=== PATIENT | female | born 1990 | race Two or more races ===

== ENCOUNTER 2024-12-03 19:11 | Emergency (ER) | payer OTHER, SELFPAY ==
--- NOTE | 2024-12-03 19:18 | XR_ITS ---
Examination: Duplex scan of the lower extremity, unilateral left Date and time of exam: December 03, 2024 1923 hours INDICATIONS: Left leg swelling pain and discoloration today Technique: Duplex scan of the extremity veins using B-mode/grayscale imaging and Doppler spectral analysis and color flow Attention is directed to internal echogenicity, compression and augmentation involving these veins, color flow assessment, spectral analysis Findings: Major deep venous structures in the extremity demonstrate normal course and caliber. There is no evidence of deep vein thrombosis. Normal color flow and spectral analysis Impression: Negative for DVT..
[2024-12-03 19:19] VITALS: BP 154/80; PULSE 87; RESP 20; TEMP 36.6; O2SAT 96
--- NOTE | 2024-12-03 19:20 | EDNOTE_ITS ---
ED Extremity Problem RME/HPI General Chief complaint: Extremity Problem,Nontraumatic Stated complaint: LEFT LEG SWELLING ,DISCOLORED, AND PAIN Time Seen by Provider: 12/03/24 19:17 Arrival date/time: 12/03/24 19:11 34F with no significant PMH presents to ED with L leg swelling and pain w/o fall/trauma today. Patient has had sciatica before and states this feels different. Limitations: no limitations Related Data Allergies Allergy/AdvReac Type Severity Reaction Status Date / Time No Known Allergies Allergy Verified 12/03/24 19:12 Review of Systems Review of Systems Systems Reviewed: All systems reviewed, normal except as documented Constitutional Constitutional: Reports system reviewed and no additional complaints, except as documented, Denies fever(s) and Denies headache(s) ENT Ears, Nose, Mouth, and Throat: Denies disequilibrium and Denies headache(s) Cardiovascular Cardiovascular: Reports system reviewed and no additional complaints, except as documented, Denies chest pain and Denies dyspnea Respiratory Respiratory: Reports system reviewed and no additional complaints, except as documented, Denies cough and Denies dyspnea Gastrointestinal Gastrointestinal: Reports system reviewed and no additional complaints, except as documented, Denies abdominal pain, Denies nausea and Denies vomiting Musculoskeletal Musculoskeletal: Reports as per HPI and Reports arthralgias Neurologic Neurologic: Reports system reviewed and no additional complaints, except as documented, Denies confusion, Denies disequilibrium and Denies headache(s) Psychiatric Psychiatric: Denies confusion Past Medical History Past Medical History NEUROLOGIC: Positive Migraine; Negative Neurological Disorders, Seizures or Head Trauma CARDIAC: Negative Cardiac Disorders, Heart Murmur, Hypercholesterolemia, Congestive Heart Failure, Edema, Hypertension or Varicose Veins RESPIRATORY: Positive Pneumonia (2016); Negative Chronic Obstructive Pulmonary Disease (COPD), Tuberculosis or Sleep Apnea GASTROINTESTINAL: Positive Gastrointestinal Disorders and Obesity; Negative Hepatitis GENITOURINARY: Negative Genitourinary Disorders, Renal Disease or Kidney Stones REPRODUCTIVE: Positive Previous Pregnancies (X2); Negative Breast Cancer MUSCULOSKELETAL: Positive Musculoskeletal Disorders (CARPAL TUNNEL BILATERAL, HIP PAIN BILATERAL) and Fractures (RIGHT PINKY, LEFT ANKLE) ENT: Positive Ear Infection (BILAT); Negative Cataracts, Glaucoma or Head Trauma ENDOCRINE: Negative Endocrine Disorders, Diabetes Mellitus Type 1 or Diabetes Mellitus Type 2 HEMATOLOGIC: Positive Blood Disorders and Anemia (during ); Negative Leukemia PSYCHO/SOCIAL: Positive Anxiety (TAKES MEDS PRN) OTHER HISTORY: Positive Hospitalization (X1) and Chicken Pox; Negative Autoimmune Disease, Falls, Blood Transfusions, Blood Transfusion Reaction, Anesthesia Reactions, Organ Transplant, Chemotherapy, Radiation Therapy, MRSA, Measles, Mumps, Cancer, Breast Cancer, Cervical Cancer or Ovarian Cancer Family History FAMILY HISTORY: Positive Family Psychiatric Problems (SISTER - ANXIETY), Family Respiratory Disorders (mother, brother asthma), Family Gastrointestinal Problems (mother ulcer. MOTHER, FATHER, BROTHER - GB. MOTHER, SISTER, BROTHER - APPY) and Family Surgery (FATHER, MOTHER, BROTHER, SISTER); Negative Family Cardiac Disorders, Family Cancer or Family Anesthesia Reaction Surgical History SURGICAL: Positive Tubal Ligation (06/2019) and Section (X1 2011); Negative Cardiac Surgery, Pacemaker, Endocrine Surgery, Thyroidectomy, Ear Surgery, Eye Surgery, Nose Surgery, Oral Surgery, Tonsillectomy, Abdominal Surgery, Joint Replacement, Neurologic Surgery or Organ Transplant Social History SMOKING STATUS: Never smoker ED Exam General Limitations: Present no limitations General appearance: Present alert and in no apparent distress Head Head exam: Present atraumatic Eye Eye exam: Present normal appearance, PERRL and EOMI ENT ENT exam: Present normal exam, normal oropharynx and mucous membranes moist Neck Neck exam: Present normal inspection, full ROM and trachea midline Chest Chest inspection: Present normal inspection and symmetric chest wall rise Respiratory Respiratory exam: Present normal lung sounds bilaterally Cardiovascular Cardiovascular exam: Present regular rate, normal rhythm and normal heart sounds Abdominal Exam Abdominal exam: Present soft and normal bowel sounds Extremities Exam Extremities exam: Present normal inspection and full ROM Back Exam Back exam: Present normal inspection and full ROM Neurological Exam Neurological exam: Present alert, oriented X3 and CN II-XII intact Psychiatric Psychiatric exam: Present normal affect and normal mood Skin Skin exam: Present warm, dry, intact and normal color Course Quality Measures none Orders Category Date Time Status US venous doppler LE LT Stat Exams 12/03/24 19:18 Completed Ketorolac Inj [Toradol Inj] Med 12/03/24 21:17 Discontinued 60 mg IM X1 ONE Vital Signs Vital signs: Vital Signs Temperature 97.8 F 12/03/24 19:19 Pulse Rate 87 12/03/24 19:19 Respiratory Rate 20 12/03/24 19:19 Blood Pressure 154/80 H 12/03/24 19:19 Pulse Oximetry (%) 96 12/03/24 19:19 Oxygen Delivery Method Room Air 12/03/24 19:19 O2 at 96% on RA and WNLs Extremity Problem MDM Narrative MDM Narrative:: 34F with no significant PMH presents to ED with L leg swelling and pain w/o fall/trauma today. Patient has had sciatica before and states this feels different. Physical exam reveals minimal swelling in LLE. Skin warm. Pulses present. Patient is afebrile, calm, and alert. Leg pain. Meds and newspaper delivery counselor given. Patient data External records reviewed:: [facility] previous records Clinical information provided by:: patient Social determinants that could affect healthcare access:: none Patient has the following chronic illnesses:: none How is presenting disease/condition affected by chronic disease/condition?: no chronic disease Evaluation data The following diagnostics were reviewed and interpreted by me:: radiology exam(s) Lab and/or radiology exams considered but not ordered:: ordered Interpretation Summary: above Medications / Prescriptions Medications or Prescriptions considered but not ordered:: ordered Medication administrations:: Medication Administration History Discontinued Medications Ketorolac Tromethamine (Ketorolac Inj 60 Mg/2 Ml Vial) 60 mg IM X1 ONE Stop: 12/03/24 21:18 above Consultations Consultation(s) initiated? (list below): No Diagnosis Extremity Problem Differential Diagnosis: herpes zoster, gout, cellulitis, superficial thrombophlebitis, deep venous thrombosis of upper extremity, lower extremity edema, deep vein thrombosis of lower extremity and other (leg pain) Most likely diagnosis given after review of the tests above:: leg pain Admission Indicated Admission indicated?: not indicated Admission Request Was there a request for admission?: No Disposition Plan Disposition Plan: Discharge Discharge Attestation Discharge Attestation: The patient and all family members were given an opportunity to ask questions and understood the discharge instructions. Discharge instructions specifically effects, indications for sooner follow up or return to the emergency department, and the expected course of current diagnosis. Patient condition: Stable Discharge Plan Plan Patient Disposition: HOME (Self Care) Discharge Disposition comment: Stable Prescriptions/Referrals Referrals: Ousmane Radford MD [Primary Care Provider] - In 1 week Problem List Clinical Impression: Leg pain Patient/Caregiver Discharge Instructions Education Materials: Measuring Your Pain, ED Myalgias Additional Instructions: Please follow-up with PCP within 24-48 hours and return immediately if symptoms worsen. If problem persists, recommend outpatient PT and/or MRI follow-up. In the meantime, rest, use ice/heat, and/or compression. Return in 1-2 days for repeat US. Print Language: Salvadorean Stand Alone Forms: Work/School Release, Patient Portal Info Letter PA/MARINE TOWER OPERATOR Supervising Physician PA/MARINE TOWER OPERATOR Supervising Physician: Dr. Zeng
[2024-12-03] MEDS: KETOROLAC INJ 60 MG/2 ML VIAL IM (21:24)
== END 2024-12-03 21:32 | disposition home or self-care (01) ==
PROVIDERS: Emergency Provider Emergency Medicine; PCP Family Medicine
DX: M79.605 Pain in left leg (principal)
CPT/HCPCS: 93971; 96372; 99283; J1885

== ENCOUNTER 2024-12-04 13:17 | Emergency (ER) | payer OTHER, SELFPAY ==
[2024-12-04 13:39] VITALS: BP 122/78; PULSE 58; RESP 17; TEMP 36.9; O2SAT 96; BMI 43.5
--- NOTE | 2024-12-04 13:44 | XR_ITS ---
Examination: CTA abdominal aorta iliofemoral runoff. 2-D sagittal coronal reconstructions. 3-D reconstructions, vascular December 04, 2024 1702 hours INDICATIONS: Left leg swelling and pain beginning 2 days ago Technique: Multiple CTA images of the abdominal aorta iliofemoral runoff arterial vessels, 2.0 mm slice thickness, post intravenous administration 130 cc Isovue 370 2-D sagittal coronal reconstructions. 3-D reconstructions, vascular 3-D postprocessing, including vascular maximum intensity projection images, 3-D volume rendering Low dose protocols were performed. One or more of the following dose reduction techniques were used; automated exposure control, adjustment of the mA and/or KV according to patient size, use of iterative reconstruction technique. Findings: No focal liver or splenic lesions No gallstones No pancreatic or adrenal mass. No renal or ureteral calculi Ureters are normal size and configuration Normal appendix Complex left adnexal partially cystic mass, 5.7 cm Urinary bladder intact Common iliac external iliac common femoral arteries normal Normal superficial femoral arteries and popliteal arteries Trifurcation arteries fill to the ankles without stenoses identified IMPRESSION: 5.7 cm complex left adnexal partially cystic mass, recommend pelvic sonography follow-up Negative for obstructive arterial disease involving lower extremities.
--- NOTE | 2024-12-04 13:57 | EDRME_ITS ---
Rapid Medical Screening [facility]am [facility] Arrival date/time: 12/04/24 13:17 34-year-old female with no known medical history presents to the emergency room with a chief complaint of tenderness, swelling to her left lower extremity. The patient states she was seen here yesterday and was discharged. Patient states her pain has gotten worse, she is feeling numbness to her leg, and her left leg is a lot more cooler than her right leg I have greeted and performed a focused initial assessment of this patient. A comprehensive ED assessment and evaluation of the patient, analysis of all test results, and completion of the medical decision making process will be conducted by additional ED providers. Chief Complaint: Extremity Problem,Nontraumatic Time Seen by Provider: 12/04/24 13:27 Vital signs: Vital Signs Temperature 98.4 F 12/04/24 13:39 Pulse Rate 58 L 12/04/24 13:39 Respiratory Rate 17 12/04/24 13:39 Blood Pressure 122/78 12/04/24 13:39 Pulse Oximetry (%) 96 12/04/24 13:39 Oxygen Delivery Method Room Air 12/04/24 13:39 Vital signs reviewed by provider: Yes
[2024-12-04 14:58] LABS: Collection Type, Urine Clean Catch
[2024-12-04 15:15] LABS: Bilirubin,Urine Negative (Negative); Blood,Urine Negative (Negative); Clarity,Urine Clear (Clear/Hazy); Color,Urine Lt-Yellow (Lt Yel-Yel); Culture Indicated,Urine Not Indicated; Glucose, Urine Negative (Negative); Ketones,Urine Negative (Negative); Leukocyte Esterase,Urine Negative (Negative); Nitrite,Urine Negative (Negative); PH,Urine 5.5 (5.0-7.0); Protein,Urine Negative (Neg - Trace); RBC,Urine 3 /hpf (0-3); Specific Gravity,Urine 1.020 (1.001-1.035); Squamous Epithelial Cell,Urine 4 /hpf (0-5); Urobilinogen,Urine Negative mg/dL (0.0-1.0); WBC,Urine 2 /hpf (0-5)
[2024-12-04 15:17] LABS: Basophils # (Auto) 0.0 Thou/mm3 (0.0-0.2); Basophils % (Auto) 1 % (0-2.5); Eosinophils # (Auto) 0.1 Thou/mm3 (0.0-0.5); Eosinophils % (Auto) 1 % (0-10); Hematocrit 38.2 % (36.0-46.0); Hemoglobin 13.6 g/dL (12.0-16.0); Immature Granulocytes Auto 0.04 Thou/mm3 (0.00-0.00); Lymphocytes # (Auto) 1.8 Thou/mm3 (1.0-4.8); Lymphocytes % (Auto) 21 % (10-50); Mean Corpuscular HGB Conc 35.6 g/dl (31.0-37.0); Mean Corpuscular Hemoglobin 31.4 pg (25.0-35.0); Mean Corpuscular Volume 88 fL (80-100); Monocytes # (Auto) 0.5 Thou/mm3 (0.0-0.8); Monocytes % (Auto) 6 % (0-12); Neutrophils # (Auto) 6.3 Thou/mm3 (1.8-7.7); Neutrophils % (Auto) 72 % (37-80); Nucleated Red Blood Cell # 0.00 Thou/mm3 (0.00-0.00); Nucleated Red Blood Cell % 0 /100 WBC (0); Platelet Count 181 Thou/mm3 (140-440); RDW Standard Deviation 40.4 fL (36.4-46.3); Red Blood Count 4.33 Miln/mm3 (4.00-5.20); White Blood Count 8.8 Thou/mm3 (3.6-11.0)
[2024-12-04 15:27] LABS: HCG Qualitative,Urine Negative
[2024-12-04 15:27] LABS: Partial Thromboplastin Time 27.1 Seconds (22.0-36.0)
[2024-12-04 15:32] LABS: Alanine Aminotransferase 31 U/L (10-49); Albumin, Serum 4.1 gm/dL (3.5-5.0); Albumin/Globulin Ratio 1.5 (1.2-2.2); Alkaline Phosphatase 59 U/L (46-116); Anion Gap 9 (7-16); Aspartate Amino Transferase 20 U/L (0-34); BUN/Creatinine Ratio 13 Ratio (12-20); Bilirubin,Total 0.7 mg/dL (0.3-1.2); Blood Urea Nitrogen 10 mg/dL (9-23); Calcium 8.9 mg/dL (8.3-10.6); Calcium (Corrected) 8.9 mg/dL (8.5-10.1); Carbon Dioxide 25.4 mMol/L (20.0-31.0); Chloride 109 mMol/L (98-107); Creatinine (Component) 0.8 mg/dL (0.6-1.3); Estimated Creatinine Clearance 105.0 mL/min (>60); Globulin 2.8 gm/dL (2.3-3.5); Glucose 90 mg/dL (74-106); Osmolality,Calculated 283 (275-295); Potassium 3.7 mMol/L (3.4-5.1); Sodium 143 mMol/L (136-145); Total Protein 6.9 gm/dL (5.7-8.2); eGFR > 60 See Note
--- NOTE | 2024-12-04 18:25 | EDNOTE_ITS ---
<Statement entered by Maggi Rodriguez MD - 12/08/24 05:44> As co-signing physician, I was present and available for consult prn. I concur with the plan and care as documented by the midlevel provider. ED Extremity Problem RME/HPI General Chief complaint: Extremity Problem,Nontraumatic Stated complaint: Left leg swollen, numb and cold since yesterday Time Seen by Provider: 12/04/24 13:27 Arrival date/time: 12/04/24 13:17 RME / HPI RME / HPI Narrative: 34-year-old female with no known medical history presents to the emergency room with a chief complaint of tenderness, swelling to her left lower extremity. The patient states she was seen here yesterday and was discharged. Patient states her pain has gotten worse, she is feeling numbness to her leg, and her left leg is a lot more cooler than her right leg. Patient denies any fever denies any abdominal pain denies any other complaints medication was taken prior to arrival. Related Data Allergies Allergy/AdvReac Type Severity Reaction Status Date / Time No Known Allergies Allergy Verified 12/04/24 13:21 Review of Systems Review of Systems Narrative Review of Systems: Review of system reviewed and within normal limits except mentioned in HPI ED Exam Narrative Physical exam: VITAL SIGNS: Reviewed. GENERAL APPEARANCE: Alert and interactive, follows commands, no acute distress, HEAD AND FACE: Non-traumatic. ENT: PERRL, pink conjunctivitis, eyelid no trauma, Mucous membrane moist. NECK: Supple, nontender, no nuchal rigidity. CHEST: No tenderness, no crepitus, no paradoxical movement, no retractions. LUNGS: Clear, well ventilated, symmetric, no rales, no wheezing, no ronchi, no stridor, good breath sounds bilaterally. HEART: Regular rate, regular rhythm, no murmur, no gallops. ABDOMEN: Soft, positive bowel sounds, nondistended, no guarding, nontender, no rebound, no masses, RECTAL: Deferred. GENITAL: Deferred. NEUROLOGICAL: Gross motor function intact sensory function intact, Appropriate for age. MUSCULOSKELETAL: low back nontender, full range of motion. EXTREMITIES: Nontender, left lower extremity is a little bit colder as compared to the right. Full range of motion. Posterior tibialis and anterior tibialis pulses +2 left SKIN: Color pink, dry, no rash, no lacerations, no abrasions, no contusions. LYMPHATICS: Deferred. Course Quality Measures none Orders Category Date Time Status CT Screening NOW Care 12/04/24 13:44 Active IV [Insert IV] NOW Care 12/04/24 16:[address] angio abd ilio fem runoff Stat Exams 12/04/24 13:44 Completed US pelvic complete Stat Exams 12/04/24 18:39 Completed CBC Stat Lab 12/04/24 15:00 Completed Comprehensive Metabolic Panel Stat Lab 12/04/24 15:00 Completed HCG Qualitative,Urine Stat Lab 12/04/24 14:50 Completed Partial Thromboplastin Time Stat Lab 12/04/24 15:00 Completed Urinalysis, C/S if Indicated Stat Lab 12/04/24 14:50 Completed Vital Signs Vital signs: Vital Signs Temperature 98.4 F 12/04/24 13:39 Pulse Rate 58 L 12/04/24 13:39 Respiratory Rate 17 12/04/24 13:39 Blood Pressure 122/78 12/04/24 13:39 Pulse Oximetry (%) 96 12/04/24 13:39 Oxygen Delivery Method Room Air 12/04/24 13:39 Extremity Problem MDM Narrative MDM Narrative:: 34-year-old female with no known medical history presents to the emergency room with a chief complaint of tenderness, swelling to her left lower extremity. The patient states she was seen here yesterday and was discharged. Patient states her pain has gotten worse, she is feeling numbness to her leg, and her left leg is a lot more cooler than her right leg. Patient denies any fever denies any abdominal pain denies any other complaints medication was taken prior to arrival. Patient's workup came back unremarkable including CT of the abdomen and pelvis with iliofemoral runoff showed 5.7 cm complex left adnexal partially cystic mass, recommend pelvic sonography follow-up Negative for obstructive arterial disease involving lower extremities. Ultrasound of the pelvis showed Complex left ovarian cyst 17 x 18 x 18 mm, recommend three-month follow-up pelvic sonography Results discussed with the patient including follow-up closely with SLURRY PLANT OPERATOR for monitoring of the ovarian cyst. Patient agrees with Prior to discharge her left leg felt the same temperature as compared to the right leg. Distal neurovascular status intact bilateral Patient data External records reviewed:: None Clinical information provided by:: patient Social determinants that could affect healthcare access:: none Patient has the following chronic illnesses:: None How is presenting disease/condition affected by chronic disease/condition?: no chronic disease Evaluation data The following diagnostics were reviewed and interpreted by me:: lab results and radiology exam(s) Lab and/or radiology exams considered but not ordered:: None Interpretation Summary: See results MDM Medications / Prescriptions Medications or Prescriptions considered but not ordered:: None Medication administrations:: None Consultations Consultation(s) initiated? (list below): No Diagnosis Extremity Problem Differential Diagnosis: deep venous thrombosis of upper extremity and lower extremity edema Most likely diagnosis given after review of the tests above:: Lower leg swelling, ovarian cyst Admission Indicated Admission indicated?: not indicated Admission Request Was there a request for admission?: No Disposition Plan Disposition Plan: Discharge Discharge Attestation Discharge Attestation: The patient was given an opportunity to ask questions and understood the discharge instructions. Discharge instructions specifically effects, indications for sooner follow up or return to the emergency department, and the expected course of current diagnosis. Patient condition: Stable Discharge Plan Plan Patient Disposition: HOME (Self Care) Discharge Disposition comment: Stable Prescriptions/Referrals Referrals: Ousmane Radford MD [Primary Care Provider] - In 1 week Problem List Clinical Impression: Swelling of left lower extremity, Ovarian cyst Patient/Caregiver Discharge Instructions Discharge Activity: activity as tolerated Education Materials: ED Leg Swelling in a Single Leg Additional Instructions: Thank you for the opportunity for serving you today. You are stable for discharged . You are advised to: Follow-up with your PCP in 1 to 2 days Return to ED for worsening of symptoms Increase oral fluids Elevate legs as needed Try to do manual lymphatic massage as needed Print Language: Welsh Stand Alone Forms: [employer] Award Info., Patient Portal Info Letter SRI/LUIS ARMANDO Supervising Physician SRI/LUIS ARMANDO Supervising Physician: MD Jennifer
--- NOTE | 2024-12-04 18:39 | XR_ITS ---
Examination: Pelvic ultrasound, transabdominal, complete Technique: Transabdominal ultrasound of the pelvis performed using grayscale imaging Date and time of exam: December 04, 2024 1917 hours INDICATIONS: CT examination today 5.7 cm complex left adnexal mass FINDINGS: Uterus 10.5 cm uterine fundal fibroid 15 x 10 mm Endometrial stripe 0.7 cm Right ovary 3.4 cm marker flow Left ovary 3.7 cm arterial flow complex cyst 18 x 18 x 17 mm IMPRESSION: Complex left ovarian cyst 17 x 18 x 18 mm, recommend three-month follow-up pelvic sonography
[2024-12-04 19:52] VITALS: BP 141/80; PULSE 52; RESP 18; TEMP 36.8; O2SAT 98
[2024-12-04 21:24] VITALS: BP 105/78; PULSE 57; RESP 19; TEMP 36.8; O2SAT 100
== END 2024-12-04 21:43 | disposition home or self-care (01) ==
PROVIDERS: Nurse Practitioner Family; Emergency Provider Emergency Medicine; PCP Family Medicine
DX: M79.89 Other specified soft tissue disorders (principal); N83.202 Unspecified ovarian cyst, left side
CPT/HCPCS: 36415; 75635; 76856; 80053; 81001; 81025; 85025; 85730; 99283; A4649; Q9967

== ENCOUNTER → 2024-12-12 | Outpatient (CLI) | payer OTHER, SELFPAY ==
--- NOTE | 2024-12-12 09:45 | XR_ITS ---
Exam: MRI knee without contrast, left Date and time of exam: December 12, 2024, 1024 hrs. Indications: Anterior knee pain stiffness joint clicking beginning 9 days ago Technique: Multiple axial, coronal, and sagittal sections on the knee have been obtained. T2-Weighted sagittal, fat-suppressed images, TR 3,500, TE 62, T2 weighted coronal fat-saturated images, TR 3,500, TE 62 Proton density sagittal sections, TR 1800, TE 31. T-1 weighted coronal images, TR 524, TE 13.0 Findings: Medial meniscus anterior horn intact. Medial meniscus, body intact. Posterior horn medial meniscus intact. Lateral meniscus anterior horn is intact Lateral meniscus, body is intact Posterior horn lateral meniscus is intact Anterior cruciate ligament mild sprain Posterior cruciate ligament appears intact. Knee effusion is minimal, there is prepatellar edema. Quadriceps and patellar tendons appear intact. There is no evidence of tendinosis. Inflammatory change or fracture of Hoffa's fat pad is not seen. Medial patellar facet demonstrates no thinning. Lateral patellar facet cartilage demonstrates no thinning. Trochlear cartilage demonstrates no thinning. Marrow signal adequate. Medial collateral ligament appears intact. No meniscocapsular separation is seen. Illiotibial band and fibular collateral ligament are intact. Biceps femoris tendons appear intact. Medial femoral condylar articular cartilage demonstrates no thinning. Lateral femoral condylar articular cartilage demonstratesno thinning. Tibial plateau cartilage demonstrates no thinning. Impression: Mild sprain anterior cruciate ligament
== END | disposition home or self-care (01) ==
LOC: SMRI 09:10
PROVIDERS: PCP Family Medicine; Referring Provider Nurse Practitioner Family; Visit Provider Nurse Practitioner Family
DX: S83.512A Sprain of anterior cruciate ligament of left knee, initial encounter (principal); X58.XXXA Exposure to other specified factors, initial encounter
CPT/HCPCS: 73721

== ENCOUNTER 2025-01-22 13:00 | Outpatient (RCR) | payer OTHER, SELFPAY ==
--- NOTE | 2025-01-11 15:34 | PTNOTE_ITS ---
PT OP Initial Eval Patient Information Outpatient Physical Therapy Treatment Date: 01/11/25 Visit Reasons: left knee pain Medical Diagnosis: M25.562 Treatment Dx #1: L knee pain Treatment Dx #2: Dec L knee ROM Start of Care: 01/11/25 Date of Onset: 12/03/24 DOI Smoking Status Smoking Status: Never smoker Initial Assessment Subjective: Pt is 34 yr old female who reports L knee pain after standing up from desk in November. Increased pain with walking up/downhill and walking on even ground. Increased pain with walking >30 mins. 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 PMH: thyroid nodule, allergies Imaging: MRI of L knee Mild sprain anterior cruciate ligament Pt goal: to walk without pain Objective: Extension: -24 deg Flexion: 123 deg SLR: 65 deg with extensor lag Patella compression: positive with crepitus Varus/valgus: positive gapping into both Per's: negative Pivot shift: pain with valgus stress and knee extension. Anterior drawer: negative for tibial translation Assessment: Pt presents with decreased L knee ROM into extension limited by pain and positive patella compression testing consistent with patellofemoral pain. Pt requires skilled therapy and has fair rehab potential to meet goals if there is cartilage injury or defect. Eval followed by HEP and printout. Short Term and Heading And Priming Tool Setter Goals 1. Ind with HEP 2. Improved L knee extension ROM to full and painfree 3. Ambulate x community distances not limited by L knee pain Treatment Plan 1. Manual therapy ? 2. Therex ? 3. Modalities as indicated, moist heat, ice, TENS Frequency and Duration: 2x a week for 6 total visits including the evaluation Certification Dates: 01/11/25 to 04/11/25 Procedure Charges OP PT Eval Mod Complex 30 minutes: Yes
--- NOTE | 2025-01-14 17:31 | PT.ODAYNRPT ---
PT Outpatient Daily Note OP Daily Note Outpatient Physical Therapy Treatment Date: 01/14/25 Visit Reasons: left knee pain Subjective: Pain with L knee extension Objective: See f/S for therex MHP: x5' L knee Assessment: Improved L knee extension to almost full today. Ssx consistent with lateral patella dislocation Plan: Continue per POC Length of Time (minutes) of Treatment: 30 Minutes Procedure Charges Therapeutic Exercise 30 minutes: Yes
--- NOTE | 2025-01-22 14:22 | PT.ODAYNRPT ---
PT Outpatient Daily Note OP Daily Note Outpatient Physical Therapy Treatment Date: 01/22/25 Visit Reasons: left knee pain Subjective: Pt reoprts L knee is doing ok today, no new complaints. Objective: Please see flow sheet for ther ex list. Assessment: Instructed pt on prone repeated knee flexion, pt tolerated well. Plan: Assess response to treatment. Length of Time (minutes) of Treatment: 30 Minutes Procedure Charges Therapeutic Exercise 30 minutes: Yes
== END 2025-01-24 23:59 | disposition home or self-care (01) ==
LOC: CPTX 13:00
PROVIDERS: PCP Family Medicine; Referring Provider Family Medicine; Visit Provider Family Medicine
DX: M25.562 Pain in left knee (principal)
CPT/HCPCS: 97110; 97162

== ENCOUNTER 2025-05-11 12:35 | Emergency (ER) | payer MEDICAID, SELFPAY ==
[2025-05-11 12:53] VITALS: BP 111/67; PULSE 61; RESP 20; TEMP 36.6; O2SAT 98; BMI 44.9
--- NOTE | 2025-05-11 13:07 | XR_ITS ---
Examination: CT abdomen and pelvis without contrast. Coronal 3-D reconstructions. Sagittal 2-D reconstructions. Date and time of exam: May 11, 1622 hours INDICATIONS: Right-sided flank pain beginning this morning CTDI: vol (mGy): 15.6 DLP: (mGycm): 893 Technique: Axial images of the abdomen have been obtained, 3 mm slice thickness Intravenous contrast material has not been administered. Low dose protocols were performed. One or more of the following dose reduction techniques were used; automated exposure control, adjustment of the mA and/or KV according to patient size, use of iterative reconstruction technique. Findings: No visualized liver or splenic lesions No gallstones No pancreatic or adrenal mass No renal or ureteral calculi, no hydronephrosis Aorta normal size. No bowel obstruction. Normal appendix No diverticulitis Left pelvic 32 mm hypodense mass No bladder mass or bladder calculi Intact osseous structures Anteverted uterus IMPRESSION: No renal or ureteral calculi, no hydronephrosis Normal appendix Recommend pelvic sonography to exclude 32 mm left pelvic cyst
--- NOTE | 2025-05-11 13:09 | PD.EDRME ---
Rapid Medical Screening Exam RME Arrival date/time: 05/11/25 12:35 35-year-old female with no known medical history presents to the emergency room with a chief complaint of bilateral flank pain x 2 days Chief Complaint: Back Pain/Injury Time Seen by Provider: 05/11/25 12:48 Vital signs: Vital Signs Temperature 97.9 F 05/11/25 12:53 Pulse Rate 61 05/11/25 12:53 Respiratory Rate 20 05/11/25 12:53 Blood Pressure 111/67 05/11/25 12:53 Pulse Oximetry (%) 98 05/11/25 12:53 Oxygen Delivery Method Room Air 05/11/25 12:53 Vital signs reviewed by provider: Yes Exam: Right CVA tenderness with palpation Soft nontender abdomen Clinical Impression: Renal calculi/pyelonephritis/ureteral calculi
[2025-05-11 13:38] LABS: Collection Type, Urine Clean Catch
[2025-05-11 13:40] LABS: Basophils # (Auto) 0.0 Thou/mm3 (0.0-0.2); Basophils % (Auto) 1 % (0-2.5); Eosinophils # (Auto) 0.1 Thou/mm3 (0.0-0.5); Eosinophils % (Auto) 1 % (0-10); Hematocrit 39.9 % (36.0-46.0); Hemoglobin 14.1 g/dL (12.0-16.0); Immature Granulocytes Auto 0.03 Thou/mm3 (0.00-0.00); Lymphocytes # (Auto) 2.1 Thou/mm3 (1.0-4.8); Lymphocytes % (Auto) 24 % (10-50); Mean Corpuscular HGB Conc 35.3 g/dl (31.0-37.0); Mean Corpuscular Hemoglobin 30.9 pg (25.0-35.0); Mean Corpuscular Volume 87 fL (80-100); Monocytes # (Auto) 0.5 Thou/mm3 (0.0-0.8); Monocytes % (Auto) 6 % (0-12); Neutrophils # (Auto) 5.8 Thou/mm3 (1.8-7.7); Neutrophils % (Auto) 68 % (37-80); Nucleated Red Blood Cell # 0.00 Thou/mm3 (0.00-0.00); Nucleated Red Blood Cell % 0 /100 WBC (0); Platelet Count 214 Thou/mm3 (140-440); RDW Standard Deviation 38.3 fL (36.4-46.3); Red Blood Count 4.57 Miln/mm3 (4.00-5.20); White Blood Count 8.5 Thou/mm3 (3.6-11.0)
[2025-05-11 13:44] LABS: Bilirubin,Urine Negative (Negative); Blood,Urine Negative (Negative); Clarity,Urine Clear (Clear/Hazy); Color,Urine Lt-Yellow (Lt Yel-Yel); Glucose, Urine Negative (Negative); HCG Qualitative,Urine Negative; Ketones,Urine Negative (Negative); Leukocyte Esterase,Urine Positive (Negative); Nitrite,Urine Negative (Negative); PH,Urine 5.5 (5.0-7.0); Protein,Urine Negative (Neg - Trace); RBC,Urine 3 /hpf (0-3); Specific Gravity,Urine 1.015 (1.001-1.035); Squamous Epithelial Cell,Urine 2 /hpf (0-5); Urobilinogen,Urine Negative mg/dL (0.0-1.0); WBC,Urine 5 /hpf (0-5)
[2025-05-11 14:00] LABS: Alanine Aminotransferase 31 U/L (10-49); Albumin, Serum 4.7 gm/dL (3.5-5.0); Albumin/Globulin Ratio 1.6 (1.2-2.2); Alkaline Phosphatase 63 U/L (46-116); Anion Gap 9 (7-16); Aspartate Amino Transferase 19 U/L (0-34); BUN/Creatinine Ratio 15 Ratio (12-20); Bilirubin,Total 0.7 mg/dL (0.3-1.2); Blood Urea Nitrogen 12 mg/dL (9-23); Calcium 9.6 mg/dL (8.3-10.6); Calcium (Corrected) 9.6 mg/dL (8.5-10.1); Carbon Dioxide 26.9 mMol/L (20.0-31.0); Chloride 106 mMol/L (98-107); Creatinine (Component) 0.8 mg/dL (0.6-1.3); Estimated Creatinine Clearance 105.9 mL/min (>60); Globulin 2.9 gm/dL (2.3-3.5); Glucose 89 mg/dL (74-106); Lipase 30 U/L (12-53); Osmolality,Calculated 281 (275-295); Potassium 4.1 mMol/L (3.4-5.1); Sodium 142 mMol/L (136-145); Total Protein 7.6 gm/dL (5.7-8.2); eGFR > 60 See Note
--- NOTE | 2025-05-11 17:56 | EDNOTE_ITS ---
<Statement entered by Maggi Rodriguez MD - 05/27/25 17:41> As co-signing physician, I was present and available for consult prn. I concur with the plan and care as documented by the midlevel provider. ED Abdominal Pain RME/HPI General Chief Complaint: Back Pain/Injury Stated complaint: RADHA FLANK PAIN 03/05, RADIATING TO ABD Time seen by provider: 05/11/25 12:48 Arrival date/time: 05/11/25 12:35 Source: patient, RN notes reviewed and old records reviewed Mode of arrival: ambulatory Limitations: no limitations RME / HPI RME / HPI narrative: 35yof presents to ED for right flank pain that initiated today. No preceding injury/trauma or fall. Patient reports worsening pain with movement and palpation. No fever, nausea/vomiting, dysuria, hematuria or abdominal pain reported. Tylenol and ibuprofen taken this morning with mild relief. Related Data Previous Rx's ?Medication ?Instructions ?Recorded ibuprofen 600 mg tablet 600 mg PO Q6H PRN pain #30 t abs 05/11/25 methocarbamol 500 mg tablet 1,000 mg (2 x 500 mg) PO Q 8H PRN 05/11/25 pain #30 tabs Allergies Allergy/AdvReac Type Severity Reaction Status Date / Time No Known Allergies Allergy Verified 05/11/25 12:38 Review of Systems Review of Systems Systems Reviewed: All systems reviewed, normal except as documented Constitutional Constitutional: Denies chills and Denies fever(s) Gastrointestinal Gastrointestinal: Denies abdominal pain, Denies loose stools, Denies nausea and Denies vomiting Genitourinary Genitourinary: Denies dysuria, Reports flank pain and Denies hematuria Musculoskeletal Musculoskeletal: Reports back pain Past Medical History Past Medical History NEUROLOGIC: Positive Migraine GASTROINTESTINAL: Positive Obesity REPRODUCTIVE: Positive Previous Pregnancies (X2) MUSCULOSKELETAL: Positive Fractures (RIGHT PINKY, LEFT ANKLE) PSYCHO/SOCIAL: Positive Anxiety (TAKES MEDS PRN) Surgical History SURGICAL: Positive Tubal Ligation (06/2019) and Section (X1 2011) Social History SMOKING STATUS: Never smoker ED Exam General Limitations: Present no limitations General appearance: Present alert, in no apparent distress and obese Head Head exam: Present atraumatic and normocephalic Eye Eye exam: Present normal appearance, PERRL and EOMI ENT ENT exam: Present normal exam and mucous membranes moist Neck Neck exam: Present normal inspection and full ROM Chest Chest inspection: Present normal inspection and symmetric chest wall rise Respiratory Respiratory exam: Present normal lung sounds bilaterally; Absent respiratory distress Cardiovascular Cardiovascular exam: Present regular rate and normal rhythm Abdominal Exam Abdominal exam: Present soft; Absent distention, tenderness, guarding or rebound Extremities Exam Extremities exam: Present normal inspection and full ROM Back Exam Back exam: Present paraspinal tenderness (Right paraspinal lumbar tenderness, mild); Absent CVA tenderness (R), CVA tenderness (L) or vertebral tenderness Neurological Exam Neurological exam: Present alert and oriented X3 Psychiatric Psychiatric exam: Present normal affect and normal mood Skin Skin exam: Present warm, dry, intact and normal color Course Quality Measures none Orders Category Date Time Status CT abdomen pelvis wo con Stat Exams 05/11/25 13:07 Completed CBC Stat Lab 05/11/25 13:24 Completed CMP [Comprehensive Metabolic Panel] Stat Lab 05/11/25 13:24 Completed HCG Qualitative,Urine Stat Lab 05/11/25 13:25 Completed Lipase Stat Lab 05/11/25 13:24 Completed UA [Urinalysis] Stat Lab 05/11/25 13:25 Completed Urine Culture Stat Lab 05/11/25 13:25 Received Vital Signs Vital signs: Vital Signs Temperature 97.9 F 05/11/25 12:53 Pulse Rate 61 05/11/25 12:53 Respiratory Rate 20 05/11/25 12:53 Blood Pressure 111/67 05/11/25 12:53 Pulse Oximetry (%) 98 05/11/25 12:53 Oxygen Delivery Method Room Air 05/11/25 12:53 Abdominal Pain MDM MDM Narrative MDM Narrative:: 35yof presents to ED for right flank pain that initiated today. No preceding injury/trauma or fall. Patient reports worsening pain with movement and palpation. No fever, nausea/vomiting, dysuria, hematuria or abdominal pain reported. Tylenol and ibuprofen taken this morning with mild relief. ED workup reassuring. Suspect MSK etiology of back pain. Encouraged rest, Motrin/Tylenol, muscle relaxer, ice/heat application prn. Patient aware of left ovarian cyst; it was seen on pelvic ultrasound during 11/2024 ED visit. Encouraged close follow-up with gynecology for further evaluation and management. Stable for discharge, RTED precautions given. Patient data External records reviewed:: [facility] previous records (12/04/24 ED visit for left ovarian cyst) Clinical information provided by:: patient Social determinants that could affect healthcare access:: other (specify) (poor access to healthcare) Patient has the following chronic illnesses:: obesity How is presenting disease/condition affected by chronic disease/condition?: exacerbated by Evaluation data The following diagnostics were reviewed and interpreted by me:: lab results and radiology exam(s) Lab and/or radiology exams considered but not ordered:: None Interpretation Summary: No leukocytosis No anemia No PIPPA UA +leuks but -wbcs, suspect contaminant CT abd/pelvis: IMPRESSION: No renal or ureteral calculi, no hydronephrosis Normal appendix Recommend pelvic sonography to exclude 32 mm left pelvic cyst Dictated By: Nghia Roe MD Medications / Prescriptions Medications or Prescriptions considered but not ordered:: No antibiotics recommended at this time Medication administrations:: None Consultations Consultation(s) initiated? (list below): No Diagnosis Differential diagnosis abdominal pain: other (Kidney stone, renal colic, pyelonephritis, UTI, , MSK pain, back strain) Most likely diagnosis given after review of the tests above:: left ovarian cyst, back pain Admission Indicated Admission indicated?: not indicated Admission Request Was there a request for admission?: No Disposition Plan Disposition Plan: Discharge Discharge Attestation Discharge Attestation: The patient and all family members were given an opportunity to ask questions and understood the discharge instructions. Discharge instructions specifically effects, indications for sooner follow up or return to the emergency department, and the expected course of current diagnosis. Patient condition: Stable Discharge Plan Plan Patient Disposition: HOME (Self Care) Patient condition on transfer: Stable Prescriptions/Referrals Prescriptions/Med Rec: New ibuprofen 600 mg tablet 600 mg PO Q6H PRN (Reason: pain) Qty: 30 0RF methocarbamol 500 mg tablet 1,000 mg PO Q8H PRN (Reason: pain) Qty: 30 0RF Referrals: Ousmane Radford MD [Primary Care Provider, Family Practice] - In 1 week Problem List Clinical Impression: Acute right-sided back pain, Cyst of left ovary Patient/Caregiver Discharge Instructions Education Materials: ED Back Pain (Acute or Chronic), ED Ovarian Cyst Additional Instructions: Follow-up with your elevator examiner for further evaluation of ovarian cyst. Print Language: French Stand Alone Forms: [employer] Award Info., Work/School Release, Patient Portal Info Letter PA/FOOD SAFETY AUDITOR Supervising Physician PA/FOOD SAFETY AUDITOR Supervising Physician: Jennifer
== END 2025-05-11 18:21 | disposition home or self-care (01) ==
PROVIDERS: Nurse Practitioner Family; Emergency Provider Emergency Medicine; PCP Family Medicine
DX: M54.9 Dorsalgia, unspecified (principal); R10.A1 Flank pain, right side; N83.202 Unspecified ovarian cyst, left side
CPT/HCPCS: 36415; 74176; 80053; 81001; 81025; 83690; 85025; 87086; 99283